=== PATIENT | male | born 1955 | race Caucasian/White ===

== ENCOUNTER 2017-10-07 21:33 | Emergency (ER) | payer OTHER ==
[~2017-10-07] VITALS: Ht 180.3 cm; Wt 61.2 kg
[2017-10-07] MEDS ORDERED: BUSPIRONE HCL10 MG PO (21:42)
[2017-10-07] MEDS ORDERED: TRAMADOL 50 MG50 MG PO (21:56)
[2017-10-07] MEDS ORDERED: CLEOCIN HCL150 MG PO (21:56)
[2017-10-07 22:08] VITALS: BP 134/89
== END 2017-10-07 22:08 | disposition home or self-care (01) ==
LOC: M.ERS 21:33
DX: K08.89 Other specified disorders of teeth and supporting structures (principal); S40.811A Abrasion of right upper arm, initial encounter; L08.9 Local infection of the skin and subcutaneous tissue, unspecified; W57.XXXA Bitten or stung by nonvenomous insect and other nonvenomous arthropods, initial encounter; Y93.89 Activity, other specified; Y92.89 Other specified places as the place of occurrence of the external cause; Y99.8 Other external cause status